=== PATIENT | female | born 1990 | race Caucasian/White ===

== ENCOUNTER → 2017-05-24 | Outpatient (CLI) | payer OTHER, SELFPAY ==
[~2017-05-24] MED LIST: ESCI10TA2 PO; PRENTAB9 PO
[2017-05-24 10:32] LABS: BASO % 0.3 % (0.0-1.0); EOS # 0.2 K/mm3 (0.0-0.50); EOS % 2.4 % (0.0-3.0); LARGE UNSTAINED CELL # 0.1 K/mm3 (0.0-0.4); LARGE UNSTAINED CELL % 1.5 % (0.0-4.0); LYMPH # 1.3 K/mm3 (1.5-6.5); LYMPH % 16.6 % (24.0-44.0); MEAN CORPUSCULAR HEMOGLOBIN 31.3 pg (27.0-33.0); MEAN CORPUSCULAR HGB CONC 34.1 g/dl (32.0-36.5); MEAN CORPUSCULAR VOLUME 91.8 fl (80.0-96.0); MONO # 0.4 K/mm3 (0.0-0.8); MONO % 5.1 % (0.0-5.0); NEUTROPHILS # 5.6 K/mm3 (1.8-7.7); PLATELET COUNT, AUTOMATED 291 k/mm3 (150-450); RED CELL DISTRIBUTION WIDTH 12.3 % (11.5-14.5); WHITE BLOOD COUNT 7.6 K/mm3 (4.0-10.0)
[2017-05-24 11:07] LABS: HBsAg Prenatal NEGATIVE (NEGATIVE)
--- NOTE | 2017-05-25 01:29 | REP ---
Clinical: Anatomical evaluation. Comparison: None . Findings: Examination demonstrates a single live intrauterine in breech presentation. motion is identified by technologist. Placenta is noted anteriorly and grade zero without evidence for placenta previa or abruption. Amniotic fluid volume is normal. Cervix measures 4.1 cm in length and appears closed. Nuchal cord cannot be excluded. Gestational age by LMP 20 weeks 5 days with KARIE 10/06/2017 . Gestational age by current measurements 20 weeks 5 days with KARIE 10/06/2017 . FHR equals 141 beats per minute. BPD 4.8 cm 20 weeks 3 days HC 17.5 cm 20 weeks 0 days AC 16.1 cm 21 weeks 2 days FL 3.4 cm 20 weeks 6 days HL 3.3 cm 21 weeks 2 days HC/AC ratio 1.09 Estimated weight 386 grams ( 54th percentile). Anatomical assessment demonstrates normal structures including cranium, choroid plexus, cavum, cerebellum/posterior fossa, facial features, lungs, four-chamber heart/ventricular outflow tracts, diaphragm, stomach, cord insertion/three-vessel cord, kidneys/bladder, spine, and extremities. Impression: Single live intrauterine in breech presentation demonstrating appropriate interval growth. Anatomical assessment is complete and normal. Nuchal cord cannot be excluded. Signed by Neel Hager MD 05/25/2017 01:21 A
== END ==
LOC: M RAD 08:59
PROVIDERS: ATTEND Advanced Practice Midwife
DX: Z36 Encounter for antenatal screening of mother (principal)

== ENCOUNTER → 2017-06-25 | Outpatient (CLI) | payer SELFPAY ==
[2017-06-25 14:17] LABS: BASO % 0.2 % (0.0-1.0); EOS # 0.1 K/mm3 (0.0-0.50); EOS % 1.5 % (0.0-3.0); LARGE UNSTAINED CELL # 0.1 K/mm3 (0.0-0.4); LARGE UNSTAINED CELL % 0.9 % (0.0-4.0); LYMPH # 1.4 K/mm3 (1.5-6.5); LYMPH % 14.8 % (24.0-44.0); MEAN CORPUSCULAR HGB CONC 32.1 g/dl (32.0-36.5); MEAN CORPUSCULAR VOLUME 93.5 fl (80.0-96.0); MONO # 0.6 K/mm3 (0.0-0.8); MONO % 6.9 % (0.0-5.0); NEUTROPHILS # 6.7 K/mm3 (1.8-7.7); NEUTROPHILS % 75.7 % (36.0-66.0); PLATELET COUNT, AUTOMATED 309 k/mm3 (150-450); RED CELL DISTRIBUTION WIDTH 12.5 % (11.5-14.5); WHITE BLOOD COUNT 8.9 K/mm3 (4.0-10.0)
== END ==
LOC: M SMT 10:53
PROVIDERS: ATTEND Advanced Practice Midwife
DX: Z34.82 Encounter for supervision of other normal pregnancy, second trimester (principal)

== ENCOUNTER 2017-08-24 11:04 | Outpatient (CLI) | payer OTHER, SELFPAY ==
[~2017-08-24] VITALS: Ht 154.9 cm; Wt 72.1 kg
[2017-08-24 11:15] VITALS: BP 103/78
[2017-08-24] MEDS ORDERED: LR 1,000 ML IV SCH (11:23)
[2017-08-24] MEDS ORDERED: LACTATED RINGER'S 1000 ML IV STA (11:23)
[2017-08-24 11:44] LABS: IMMATURE GRANULOCYTE % 0.6 % (0-0); LYMPH # 1.1 10^3/uL (1.5-6.5); LYMPH % 11.4 % (24.0-44.0); MEAN CORPUSCULAR HEMOGLOBIN 28.5 pg (27.0-33.0); MEAN CORPUSCULAR HGB CONC 33.2 g/dl (32.0-36.5); MEAN CORPUSCULAR VOLUME 85.7 fl (80.0-96.0); MONO # 0.8 10^3/uL (0.0-0.8); NEUTROPHILS # 7.6 10^3/uL (1.8-7.7); PLATELET COUNT, AUTOMATED 262 10^3/uL (150-450); RED CELL DISTRIBUTION WIDTH 12.6 % (11.5-14.5); WHITE BLOOD COUNT 9.5 10^3/uL (4.0-10.0)
[2017-08-24] MEDS ORDERED: ONDANSETRON 4MG/2ML VIAL (J2405) IV SCH (12:00)
[2017-08-24] MEDS ORDERED: PRENTAB9 PO (12:11)
[2017-08-24] MEDS ORDERED: ESCI10TA2 PO (12:11)
[2017-08-24 12:14] LABS: ALBUMIN 2.7 GM/DL (3.2-5.2); ALBUMIN/GLOBULIN RATIO 0.75 (1.00-1.93); ALKALINE PHOSPHATASE 109 U/L (45-117); ALT/SGPT 22 U/L (12-78); ANION GAP 8 MEQ/L (8-16); AST/SGOT 24 U/L (15-37); BILIRUBIN,TOTAL 0.4 MG/DL (0.2-1.0); BLOOD UREA NITROGEN 12 MG/DL (7-18); CALCIUM LEVEL 8.4 MG/DL (8.5-10.1); CARBON DIOXIDE LEVEL 21 MEQ/L (21-32); CHLORIDE LEVEL 105 MEQ/L (98-107); CREATININE FOR GFR 0.77 MG/DL (0.55-1.02); GLOMERULAR FILTRATION RATE > 60.0 (>60); GLUCOSE, FASTING 125 MG/DL (70-105); POTASSIUM SERUM 3.9 MEQ/L (3.5-5.1); SODIUM LEVEL 134 MEQ/L (136-145); TOTAL PROTEIN 6.3 GM/DL (6.4-8.2)
[2017-08-24 13:09] VITALS: BP 101/61
[2017-08-24 14:14] VITALS: BP 111/57
[2017-08-24 15:14] VITALS: BP 108/69
== END 2017-08-24 15:30 | disposition home or self-care (01) ==
LOC: M LDO 11:04
PROVIDERS: ATTEND Specialist
DX: O99.89 Other specified diseases and conditions complicating pregnancy, childbirth and the puerperium (principal); Z3A.33 33 weeks gestation of pregnancy; O99.613 Diseases of the digestive system complicating pregnancy, third trimester; R11.2 Nausea with vomiting, unspecified
CPT/HCPCS: 36415; 59025; 80053; 85025; 96365; 96366; J2405

== ENCOUNTER → 2017-09-08 | Outpatient (REF) | payer OTHER | LOC: M LAB REF 17:05 | PROVIDERS: ATTEND Specialist | DX: Z34.83 Encounter for supervision of other normal pregnancy, third trimester (principal) ==

== ENCOUNTER 2017-10-07 00:49 | Inpatient (IN) | payer OTHER ==
[2017-10-07] VITALS (20 sets, daily range): BP systolic 94–127; BP diastolic 53–82
[~2017-10-07] VITALS: Ht 154.9 cm; Wt 78.4 kg
[2017-10-07] MEDS ORDERED: LR 1,000 ML IV SCH (01:16)
[2017-10-07] MEDS ORDERED: LACTATED RINGER'S 1000 ML IV STA (01:16)
[2017-10-07] MEDS ORDERED: OXYTOCIN DRIP 30 UNITS in APPROPRIATE DILUENT 1 EA IV SCH ×2 (01:30→09:17)
--- NOTE | 2017-10-07 01:32 | HPEPDOC ---
[facility] Medical History & Physical Date of Admission Oct 07, 2017 Other Provider Carla BORJAS Attending Physician: Nuvia Martin CNM History and Physical HISTORY & PHYSICAL EXAMINATION DATE OF ADMISSION: 10/07/2017 26-year-old, 1, para 0, at 40 0/7 weeks gestation by first trimester ultrasound at 10w 1/7 weeks of for an estimated date of delivery of 40 1/7 weeks presents with complaints of contractions starting around midnight. Upon evaluation, she is 3 cm, 80% effaced, -1 station. She reports active movement. Denies loss of fluid or bleeding. Prepregnancy weight was 125lbs. Total weight gain 46 pounds. She has been normotensive through the . Last office visit was at 39 weeks 6 days on 10/05/2017. has been uncomplicated with the exception of depression treated with Lexapro.Anatomy scan within normal limits. MEDICAL/SURGICAL HISTORY: breast augmentation FAMILY HISTORY: Noncontributory. SOCIAL HISTORY: . Father of the baby and mother are present at the bedside, Supportive. Denies tobacco during , alcohol or drugs. History of HPV. No history of abuse. Allergies: NKDA Medications: Lexapro 10mg PO daily OBJECTIVE: Labs are A+, antibody negative. Initial hemoglobin and hematocrit 13.2 and 38.7 with platelets of 291. Rubella immune. VDRL, hepatitis B, hepatitis C, HIV, gonorrhea, chlamydia all negative. Genetic screening declined. 1 hour GCT 58. Group B strep is negative. VITAL SIGNS: Stable. She is in no apparent distress, coping well. Breathing with contractions. Abdomen is soft, gravid, nontender, longitudinal lie, vertex by Ross. Contractions 5 minutes apart, 40-50 seconds, moderate to palpation. heart 140, moderate variability with accelerations, category 1 tracing. Sterile vaginal exam: 3 cm, 80% effaced, -1 station, intact membranes and cephalic. ASSESSMENT: 26year-old, 1, at 40 weeks 1 days gestation, in active labor , category 1 tracing. PLAN: Admit to L and D for routine labor orders. Patient is planning an epidural for labor coping. Pitocin ordered to augment labor prn. Anticipate normal spontaneous vaginal . Vital Signs Vital Signs Date Time Temp Pulse Resp B/P (MAP) Pulse Ox O2 Delivery O2 Flow Rate FiO2 10/07/17 01:01 98.3 82 18 120/80 (93) Home Medications Scheduled Escitalopram Oxalate (Escitalopram Oxalate) 10 Mg Tab, 10 MG PO DAILY Multivitamins/ ( 27-0.8 mg) 1 Tab Tab, 1 TAB PO DAILY Allergies Coded Allergies: No Known Allergies (Unverified , 08/24/17) Nuvia Martin CNM Oct 07, 2017 01:32
[2017-10-07] MEDS ORDERED: ACET50TA PO (01:47)
[2017-10-07 01:48] LABS: MEAN CORPUSCULAR HEMOGLOBIN 27.1 pg (27.0-33.0); MEAN CORPUSCULAR HGB CONC 32.5 g/dl (32.0-36.5); MEAN CORPUSCULAR VOLUME 83.4 fl (80.0-96.0); PLATELET COUNT, AUTOMATED 295 10^3/uL (150-450); RED CELL DISTRIBUTION WIDTH 14.4 % (11.5-14.5); WHITE BLOOD COUNT 10.8 10^3/uL (4.0-10.0)
[2017-10-07] MEDS ORDERED: FENTANYL 2MCG/ML ROPIVACAINE 0.2% IN 0.9% NACL 200ML IVBAG As Ordered ONE (02:03)
[2017-10-07] MEDS ORDERED: diphenhydrAMINE INJ 50MG/ML VIAL (J1200) IV PRN (03:45)
[2017-10-07] MEDS ORDERED: REFRIGERATOR IV KEYS XX PRN (03:45)
[2017-10-07] MEDS ORDERED: FENTANYL/ROPIVACAINE/NACL BAG 200 ML EPIDURAL SCH (03:45)
[2017-10-07] MEDS ORDERED: ePHEDrine SULFATE 25 MG/5 ML(5MG/ML) SYRINGE IV PRN (03:45)
[2017-10-07] MEDS ORDERED: ONDANSETRON 4MG/2ML VIAL (J2405) IV PRN (03:45)
[2017-10-07] MEDS ORDERED: EPIDURAL/PCA KEYS XX PRN (03:45)
[2017-10-07] MEDS ORDERED: EPIDURAL COMMENT XX SCH (03:45)
[2017-10-07] MEDS ORDERED: NALOXONE INJ 0.4 MG/1 ML VIAL (J2310) IV PRN (03:45)
[2017-10-07] MEDS ORDERED: LACTATED RINGER'S 1000 ML IV PRN (03:45)
--- NOTE | 2017-10-07 05:59 | IPNPDOC ---
Text Note Date of Service The patient was seen on 10/07/17. NOTE Patient sitting up in bed, NAD talking. Comfortable with epidural. States she doesn't feel anything. Family at bedside O: VSS FHR:145, moderate variability, +accel, +early deceleration +variables CTX: 3-4 mins, 60 seconds, moderate to palpate. SSVE: 9cm/100/0/AROM clear, small amount, odorless, bloody stained. A: 40 1/7 weeks gestation in active labor, category 1 tracing P: Anticipate VS,Fishbone, I+O VS, Fishbone, I+O Laboratory Tests 10/07/17 01:36 Red Blood Count 4.39, Mean Corpuscular Volume 83.4, Mean Corpuscular Hemoglobin 27.1, Mean Corpuscular Hemoglobin Concent 32.5, Red Cell Distribution Width 14.4 Vital Signs Date Time Temp Pulse Resp B/P (MAP) Pulse Ox O2 Delivery O2 Flow Rate FiO2 10/07/17 01:01 98.3 82 18 120/80 (93) Nuvia Martin CNM Oct 07, 2017 05:59
--- NOTE | 2017-10-07 08:19 | IPNPDOC ---
Text Note Date of Service The patient was seen on 10/07/17. NOTE Approximately 15 min of tachycardia, 170's-180's Pushing with UC Presenting part +2/+[address] Hughes requested to attend Page CROSS I+O Page CROSS I+O Laboratory Tests 10/07/17 01:36 Red Blood Count 4.39, Mean Corpuscular Volume 83.4, Mean Corpuscular Hemoglobin 27.1, Mean Corpuscular Hemoglobin Concent 32.5, Red Cell Distribution Width 14.4 Vital Signs Date Time Temp Pulse Resp B/P (MAP) Pulse Ox O2 Delivery O2 Flow Rate FiO2 10/07/17 05:48 101 127/65 (85) 10/07/17 01:01 98.3 18 Nuvia Martin CNM Oct 07, 2017 08:19
[2017-10-07 08:50] LABS: CORD GAS ABE V -7.8; CORD GAS HCO3 V 17.8 MEQ/L; CORD GAS O2 SAT V 65.1 %; CORD GAS PCO2 V 36.6 mmHg; CORD GAS PH V 7.304 UNITS; CORD GAS PO2 V 28.5 mmHg; CORD GAS SBC V 17.6 MEQ/L; CORD GAS TCO2 V 18.9 MEQ/L
[2017-10-07 08:52] LABS: CORD GAS ABE A -7.4; CORD GAS HCO3 A 20.3 MEQ/L; CORD GAS O2 SAT A 29.2 %; CORD GAS PCO2 A 49.4 mmHg; CORD GAS PH A 7.232 UNITS; CORD GAS PO2 A 16.6 mmHg; CORD GAS SBC A 17.1 MEQ/L; CORD GAS TCO2 A 21.8 MEQ/L
[2017-10-07] MEDS ORDERED: ANUSOL HC CREAM 30GM TOP PRN (09:30)
[2017-10-07] MEDS ORDERED: DOCUSATE SODIUM 100 MG CAP PO PRN (09:30)
[2017-10-07] MEDS ORDERED: MOM 30ML SUSPENSION UDC PO PRN (09:30)
[2017-10-07] MEDS ORDERED: MEASLES,MUMPS,RUBELLA VACCINE INJ (MMR-II) (90707) SC SCH (09:30)
[2017-10-07] MEDS ORDERED: DIBUCAINE 1% OINTMENT 30GM TOP PRN (09:30)
[2017-10-07] MEDS ORDERED: METHYLERGONOVINE MALEATE 0.2 MG TAB PO PRN (09:30)
[2017-10-07] MEDS ORDERED: RHOGAM 300 MCG (1500 IU) INJ (J2790) IM SCH (09:30)
--- NOTE | 2017-10-07 09:53 | DN ---
DATE OF DELIVERY: 10/07/2017 TIME OF : 0835 hours. GENDER: Female. SCORE: 9 and 9. WEIGHT: Was 3310 grams or 7 pounds 5 ounces. LACERATION: Bilateral labia and right vaginal wall. ESTIMATED BLOOD LOSS: Was 450 mL. ANESTHESIA: Epidural. COUNTS: 10 laparotomy sponges accounted for prior to and after delivery. Four Sharps removed from the delivery field. CORD GASES: 7.23, 7.30. Base excesses of -7.4, -7.8, respectively. MODE OF DELIVERY: Was a low vacuum assisted vaginal delivery secondary to nonreassuring status. DELIVERY NOTE: On 10/07/2017, at 0835 hours, Mrs. Henderson, a 26-year-old, 1 , now para 1, had a low vacuum assisted vaginal delivery of a liveborn female , score 9 and 9, weight was 7 pounds 5 ounces or 3310 grams. Indication for operative delivery with nonreassuring heart tracing with persistent tachycardia and variable decelerations. Patient was verbally consented for an operative delivery. Kiwi vacuum was placed after position was confirmed. With one maternal pushing effort, there was two pop-offs secondary to poor vacuum seal. Vacuum was replaced and with Mrs. Henderson's second pushing effort head was delivered. The vacuum was then released. There was a nuchal cord, which was manually reduced followed by delivery of right anterior, left posterior shoulder. Cord was clamped times two. It was cut. Infant was taken over to the warmer where Dr. Alvarez, vice president of manufacturing awaited. Cord gas with cord blood was obtained. Placenta was drained and delivered grossly intact. A premixed bag of 500 mL of normal saline with 30 units of Pitocin was then bolused along with uterine massage until the uterus was firm. On inspection, there was bilateral lacerations and right vaginal wall lacerations. All three repaired using #3-0 Vicryl Rapide and #4-0 Vicryl. On re-inspection, the cervix , vagina and perineum was grossly intact and hemostatic. Mom and baby recovered in stable condition. The couple have decided to name their daughter, Kayla. MARY
[2017-10-07] MEDS: PRENATAL VITAMINS CHEWABLE TABLET PO SCH (11:16)
[2017-10-07] MEDS: ACETAMINOPHEN 500 MG TAB PO PRN (18:23)
[2017-10-08] MEDS: ACETAMINOPHEN 500 MG TAB PO PRN ×2 (03:30→21:39)
[2017-10-08 06:40] VITALS: BP 108/62
[2017-10-08] MEDS: PRENATAL VITAMINS CHEWABLE TABLET PO SCH (08:36)
[2017-10-08] MEDS: IBUPROFEN 800 MG TAB PO PRN ×2 (08:37→16:47)
[2017-10-08 18:00] VITALS: BP 108/67
[2017-10-09 06:00] VITALS: BP 121/78
[2017-10-09] MEDS: PRENATAL VITAMINS CHEWABLE TABLET PO SCH (08:45)
[2017-10-09] MEDS: IBUPROFEN 800 MG TAB PO PRN (08:46)
[2017-10-09] MEDS ORDERED: ACET50TA PO (09:02)
[2017-10-09] MEDS ORDERED: IBUP-1114 PO (09:03)
== END 2017-10-09 10:00 | disposition home or self-care (01) | DRG 775 ==
LOC: M LDO 00:49 → M LDI 01:44 → M OBS 11:09
PROVIDERS: ADMIT Advanced Practice Midwife; ATTEND Advanced Practice Midwife
PROC: 10D07Z6 Extraction of Products of Conception, Vacuum, Via Natural or Artificial Opening (ICD-10-PCS; principal; 2017-10-07)
PROC: 0HQ9XZZ Repair Perineum Skin, External Approach (ICD-10-PCS; 2017-10-07)
DX: O48.0 Post-term pregnancy (principal); Z37.0 Single live birth; Z3A.40 40 weeks gestation of pregnancy; F32.9 Major depressive disorder, single episode, unspecified; O99.344 Other mental disorders complicating childbirth; O70.0 First degree perineal laceration during delivery; O76 Abnormality in fetal heart rate and rhythm complicating labor and delivery; O69.82X0 Labor and delivery complicated by other cord entanglement, without compression, not applicable or unspecified

== ENCOUNTER → 2019-09-06 | Outpatient (REF) | payer OTHER ==
[~2019-09-06] MED LIST changes: +IBUP-1114 PO; +MAPA500T2 PO
[2019-09-06 20:13] LABS: CHLAMYDIA DNA AMPLIFICATION NEGATIVE (NEGATIVE); GC DNA AMPLIFICATION NEGATIVE (NEGATIVE)
== END ==
LOC: M LAB REF 17:04
PROVIDERS: ATTEND Advanced Practice Midwife
DX: Z12.4 Encounter for screening for malignant neoplasm of cervix (principal); Z11.3 Encounter for screening for infections with a predominantly sexual mode of transmission
CPT/HCPCS: 87491; 87591; G0123

== ENCOUNTER → 2019-09-08 | Outpatient (CLI) | payer OTHER ==
--- NOTE | 2019-09-08 15:50 | REP ---
REASON: Lymph nodes. COMPARISON: None. Multiple ultrasonographic images of the groin region was obtained bilaterally and shows peripherally hypoechoic centrally echogenic reniform shaped nodules which have vascular fatty cyndy all consistent with lymph nodes and varying in sizes under 1 cm to the largest on the right 1.8 cm in greatest dimension and the largest on the left 1.4 cm in greatest dimension. This needs to be correlated clinically. STANDARD TRANSVESICAL AND TRANSVAGINAL PELVIC ULTRASONOGRAPHY: REASON: Mittelschmerz. PRIORS: None. Uterus measures 8.0 x 4.0 x 4.9 cm. The parenchymal echo pattern is normal. The endometrial echo complex is smooth and unremarkable appearing measuring 7 mm in thickness. Right ovary measures 4.5 x 2.6 x 2.7 cm and is within normal limits with an RI of 0.54. There is a dominant follicle seen in the right ovary which is incidental. Left ovary measures 3.3 x 1.8 x 3.2 cm and is within normal limits with an RI of 0.49. There is no abnormal fluid in the cul-de-sac. Urinary bladder measures 6.0 x 4.0 x 10.0 cm. IMPRESSION: 1. Groin lymph nodes as described above. 2. Pelvic ultrasonography is within normal limits. Electronically Signed by Trenton Lange DO 09/08/2019 04:23 P
== END ==
LOC: M RAD 08:06
PROVIDERS: ATTEND Advanced Practice Midwife
DX: N94.0 Mittelschmerz (principal); R59.9 Enlarged lymph nodes, unspecified

== ENCOUNTER → 2019-11-20 | Outpatient (CLI) | payer OTHER ==
--- NOTE | 2019-11-20 13:32 | REP ---
Focused right breast sonography: History: 29-year-old woman status post saline augmentation with diffuse cystic mastopathy. She reports feeling a lump at 11 o'clock. Sonographic findings: Implant margins are unremarkable. Heterogeneous fibroglandular background echotexture is seen. No cyst, mass or acoustic shadowing is seen. Impression: BIRADS category 2 benign findings. Clinical followup is advised.
== END ==
LOC: M WHC 08:38
PROVIDERS: ATTEND Obstetrics & Gynecology
DX: N60.11 Diffuse cystic mastopathy of right breast (principal)

== ENCOUNTER → 2020-04-01 | Outpatient (CLI) | payer OTHER ==
[2020-04-01 12:33] LABS: BASO % 0.6 % (0.0-1.0); EOS # 0.1 10^3/uL (0.0-0.5); EOS % 1.1 % (0.0-3.0); HEMATOCRIT 43.1 % (36.0-47.0); HEMOGLOBIN 13.9 g/dl (12.0-15.5); LYMPH # 2.5 10^3/uL (1.5-5.0); LYMPH % 54.4 % (24.0-44.0); MEAN CORPUSCULAR HEMOGLOBIN 29.8 pg (27.0-33.0); MEAN CORPUSCULAR HGB CONC 32.3 g/dl (32.0-36.5); MEAN CORPUSCULAR VOLUME 92.5 fl (80.0-96.0); MONO # 0.4 10^3/uL (0.0-0.8); MONO % 9.1 % (0.0-5.0); NEUTROPHILS # 1.6 10^3/uL (1.5-8.5); NEUTROPHILS % 34.6 % (36.0-66.0); PLATELET COUNT, AUTOMATED 330 10^3/uL (150-450); RED BLOOD COUNT 4.66 10^6/uL (4.00-5.40); WHITE BLOOD COUNT 4.6 10^3/uL (4.0-10.0)
[2020-04-01 13:01] LABS: TOTAL 25(OH) VITAMIN D 24.6 NG/ML (30.0-100.0)
[2020-04-01 13:09] LABS: FREE T4 1.08 NG/DL (0.76-1.46); THYROID STIMULATING HORMONE 1.7 uIU/ML (0.358-3.740)
== END ==
LOC: M WUC 09:54
PROVIDERS: ATTEND Family Medicine
DX: Z13.0 Encounter for screening for diseases of the blood and blood-forming organs and certain disorders involving the immune mechanism (principal); Z13.29 Encounter for screening for other suspected endocrine disorder

== ENCOUNTER → 2021-01-22 | Outpatient (CLI) | payer OTHER ==
[~2021-01-22] MED LIST changes: +ESCI10TA16 PO; -ESCI10TA2 PO
--- NOTE | 2021-01-22 11:25 | REP ---
INDICATION: MASS LEFT AXILLA. COMPARISON: None. TECHNIQUE: Real-time sonographic evaluation of left axilla performed. FINDINGS: There are 4 morphologically normal appearing lymph nodes identified in the left axilla, without significant cortical thickening. The largest 2 measure 1.3 x 0.5 x 1.5 cm and 1.4 x 0.6 x 1.4 cm. No other cystic or solid nodule is seen. IMPRESSION: Four morphologically normal appearing lymph nodes are identified in the left axilla with no other evidence of cystic or solid mass. <Electronically signed by Poncho Lizama > 01/22/21 1129
== END ==
LOC: M RAD 10:34
PROVIDERS: ATTEND Family Medicine
DX: D48.1 Neoplasm of uncertain behavior of connective and other soft tissue (principal)

== ENCOUNTER → 2022-01-20 | Outpatient (CLI) | payer OTHER ==
[2022-01-20 15:48] LABS: BASO % 0.3 % (0.0-1.0); EOS % 0.4 % (0.0-3.0); HEMATOCRIT 43.2 % (36.0-47.0); HEMOGLOBIN 14.3 g/dl (12.0-15.5); LYMPH # 2.2 10^3/uL (1.5-5.0); LYMPH % 31.1 % (24.0-44.0); MEAN CORPUSCULAR HEMOGLOBIN 30.1 pg (27.0-33.0); MEAN CORPUSCULAR HGB CONC 33.1 g/dl (32.0-36.5); MEAN CORPUSCULAR VOLUME 90.9 fl (80.0-96.0); MONO # 0.4 10^3/uL (0.0-0.8); MONO % 5.5 % (2.0-8.0); NEUTROPHILS # 4.4 10^3/uL (1.5-8.5); NEUTROPHILS % 62.4 % (36.0-66.0); PLATELET COUNT, AUTOMATED 313 10^3/uL (150-450); RED BLOOD COUNT 4.75 10^6/uL (4.00-5.40)
[2022-01-20 16:19] LABS: ALBUMIN 4.2 GM/DL (3.2-5.2); ALT/SGPT 22 U/L (12-78); BILIRUBIN,TOTAL 0.5 MG/DL (0.2-1.0); BLOOD UREA NITROGEN 18 MG/DL (7-18); CALCIUM LEVEL 9.6 MG/DL (8.5-10.1); CARBON DIOXIDE LEVEL 27 MEQ/L (21-32); CHLORIDE LEVEL 106 MEQ/L (98-107); CREATININE FOR GFR 0.77 MG/DL (0.55-1.30); FREE T4 1.14 NG/DL (0.76-1.46); GLOMERULAR FILTRATION RATE > 60.0 (>60); GLUCOSE, FASTING 76 MG/DL (70-100); POTASSIUM SERUM 4.1 MEQ/L (3.5-5.1); SODIUM LEVEL 138 MEQ/L (136-145); TOTAL PROTEIN 7.7 GM/DL (6.4-8.2)
== END ==
LOC: M WUC 13:54
PROVIDERS: ATTEND Nurse Practitioner Adult Health
DX: F41.1 Generalized anxiety disorder (principal)

== ENCOUNTER → 2022-02-12 | Outpatient (CLI) | payer OTHER | LOC: M RAD 15:28 | PROVIDERS: ATTEND Nurse Practitioner Adult Health | DX: R13.10 Dysphagia, unspecified (principal); R59.9 Enlarged lymph nodes, unspecified ==